=== PATIENT | male | born 1965 | race Caucasian/White ===

== ENCOUNTER 2017-02-01 11:58 | Outpatient (CLI) | payer BC ==
[2017-02-01 12:25] LABS: Bilirubin Negative (Negative); Blood, Urine Negative (Negative); Clarity Clear (Clear); Glucose, Urine (Dipstick) Negative (Negative); Nitrite Negative (Negative); Protein, Urine (Dipstick) Negative (Neg-Trace); pH, Urine 7.5 (5.0-9.0)
[2017-02-01 12:26] LABS: #Basophils 0.2 thou/uL (0.0-0.2); #Eosinphils 0.3 thou/uL (0.0-0.7); #Lymphocytes 2.2 thou/uL (1.20-3.40); #Monocytes 0.9 thou/uL (0.11-0.59); %Eosinophils 4.1 % (0.0-10.0); %Lymphocytes 29.1 % (21.0-51.0); %Monocytes 11.7 % (0.0-10.0); %Neutrophils 53.1 % (42.0-75.0); Hemoglobin 15.3 g/dL (14.0-18.0); Mean Corpuscular HGB CONC 33.2 g/dL (32.0-36.0); Mean Corpuscular Hemoglobin 30.5 pg (27.0-31.0); Mean Corpuscular Volume 91.9 fl (80.0-94.0); Mean Platelet Volume 7.3 fL (7.4-10.4); Platelet Count 268 thou/uL (130-400); RBC Distribution Width 11.6 % (11.5-14.5); Red Blood Cell (RBC) Count 5.03 mill/uL (4.70-6.10); White Blood Cell (WBC) Count 7.6 thou/uL (4.8-10.8)
[2017-02-01 12:30] LABS: Leukocyte Trace (Negative)
[2017-02-01 12:47] LABS: Bacteria/HPF Rare-Few HPF (None Seen); Other Microscopic Description NO; RBC/HPF None Seen HPF (0-3); Squamous Epithelial 0-3 HPF (0-3); WBC/HPF 0-3 HPF (0-3)
[2017-02-01 13:01] LABS: Anion Gap 12 mmol/L (10-20); BUN (Urea Nitrogen) 13 mg/dL (8.4-25.7); Calc. Creatinine Clearance 0 mL/min (70-130); Carbon Dioxide 23 mmol/L (22-29); Chloride 107 mmol/L (98-107); Estimated GFR-MDRD Greater than 90; Glucose 98 mg/dL (70-105); Potassium 4.4 mmol/L (3.5-5.1); Sodium 138 mmol/L (136-145)
[2017-02-01 13:02] LABS: ALT (SGPT) 13 U/L (8-55); AST (SGOT) 19 U/L (5-34); Albumin 4.1 g/dL (3.5-5.0); Alkaline Phosphatase 82 U/L (40-150); Globulin 2.9 g/dL (2.4-3.5)
== END 2017-02-01 11:59 | disposition home or self-care (01) ==
LOC: NAVSJIPCSP 11:58
PROVIDERS: ATTEND Internal Medicine
DX: Z12.5 Encounter for screening for malignant neoplasm of prostate (principal); R10.13 Epigastric pain
CPT/HCPCS: 36415; 80053; 81003; 81015; 85025; G0103

== ENCOUNTER 2017-03-08 08:42 | Outpatient (CLI) | payer BC ==
--- NOTE | 2017-03-08 12:07 | CT ---
CT ABDOMEN WITH IV CONTRAST CT PELVIS WITH IV CONTRAST 03/08/2017 HISTORY: Periumbilical abdominal pain. History of hernia surgery two years ago. COMPARISON: None available. CONTRAST: [id number] 94 mL. FINDINGS: There is minimal linear scarring versus atelectasis at the right lung base. The lung bases are othe rwise clear. There is a coarse calcification seen within the medial segment of the left hepatic lobe, which may b e attributable to prior granulomatous disease. The liver is otherwise normal in appearance. There are two nonobstructing inferior pole left renal calculi, with the largest calculus measuring a pproximately 7 mm. The spleen, pancreas, bilateral adrenal glands, right kidney, urinary bladder, and opacified bowel d emonstrate a normal CT appearance. The appendix is visualized and filled with gas and is normal in caliber. Minimal vascular calcifications are seen in the abdominal aorta, which is normal in caliber. No free fluid, fluid collection, or lymphadenopathy is seen in the abdomen or pelvis. A small to mo derate amount of retained fecal material is seen throughout the colon, greater in the region of the rectum. There are degenerative changes seen in the spine, with bilateral hip osteoarthritis present. IMPRESSION: 1. Nonobstructing left renal calculi. 2. No CT evidence of appendicitis. 3. Mild enlargement of the prostate gland, measuring 5.5 cm in transverse dimensions. 4. No acute findings are seen in the abdomen or pelvis. POS: [facility]
== END 2017-03-08 08:43 | disposition home or self-care (01) ==
LOC: NAV CT 08:42
PROVIDERS: ATTEND Surgery
DX: R10.33 Periumbilical pain (principal); N20.0 Calculus of kidney; N40.0 Benign prostatic hyperplasia without lower urinary tract symptoms
CPT/HCPCS: 74177

== ENCOUNTER 2021-11-09 09:08 | Outpatient (CLI) | payer BC ==
[2021-11-09 09:38] LABS: Calc. Creatinine Clearance 0 mL/min (70-130)
== END 2021-11-09 09:09 | disposition home or self-care (01) ==
LOC: NAV LAB 09:08
PROVIDERS: ATTEND Radiology Diagnostic Radiology
DX: Z01.812 Encounter for preprocedural laboratory examination (principal)
CPT/HCPCS: 36415; 82565

== ENCOUNTER 2021-11-09 09:17 | Outpatient (CLI) | payer BC ==
[~2021-11-09 09:17] MED LIST: Iopamidol 370 76% 100 ML VIAL ONE
== END 2021-11-09 09:18 | disposition home or self-care (01) ==
LOC: NAV CT 09:17
PROVIDERS: ATTEND Surgery
DX: R10.9 Unspecified abdominal pain (principal); N20.0 Calculus of kidney
CPT/HCPCS: 74177; Q9967

== ENCOUNTER 2021-11-17 10:14 | Emergency (ER) | payer BC ==
[2021-11-17 11:09] LABS: Hemoglobin 12.7 g/dL (14.0-18.0); Red Blood Cell (RBC) Count 4.09 mill/uL (4.70-6.10); White Blood Cell (WBC) Count 6.6 thou/uL (4.8-10.8)
[2021-11-17 11:10] LABS: #Basophils 0.1 thou/uL (0.0-0.2); #Eosinphils 0.2 thou/uL (0.0-0.7); #Lymphocytes 1.4 thou/uL (1.20-3.40); #Monocytes 0.9 thou/uL (0.11-0.59); #Neutrophils 4.1 thou/uL (1.40-6.50); %Basophils 1.1 % (0.0-1.0); %Eosinophils 2.7 % (0.0-10.0); %Lymphocytes 20.8 % (21.0-51.0); %Monocytes 13.6 % (0.0-10.0); %Neutrophils 61.9 % (42.0-75.0); Manual Diff?? NO; Mean Corpuscular HGB CONC 31.3 g/dL (32.0-36.0); Mean Corpuscular Hemoglobin 31.1 pg (27.0-31.0); Mean Corpuscular Volume 99.4 fL (78.0-98.0); Mean Platelet Volume 7.5 fL (7.4-10.4); Platelet Count 266 thou/uL (130-400); RBC Distribution Width 11.8 % (11.5-14.5)
[2021-11-17 11:24] LABS: ALT (SGPT) 20 U/L (8-55); AST (SGOT) 25 U/L (5-34); Albumin 3.7 g/dL (3.5-5.0); Alkaline Phosphatase 56 U/L (40-110); Anion Gap 14 mmol/L (10-20); BUN (Urea Nitrogen) 14 mg/dL (8.4-25.7); Bilirubin, Total 0.9 mg/dL (0.2-1.2); Calc. Creatinine Clearance 0 mL/min (70-130); Calcium 8.7 mg/dL (7.8-10.44); Carbon Dioxide 25 mmol/L (22-29); Chloride 107 mmol/L (98-107); Globulin 2.3 g/dL (2.4-3.5); Glucose 98 mg/dL (70-105); Lipase 35 U/L (8-78); Potassium 4.5 mmol/L (3.5-5.1); Sodium 141 mmol/L (136-145)
[2021-11-17 12:23] LABS: Bilirubin Small (Negative); Blood, Urine Negative (Negative); Clarity Clear (Clear); Glucose, Urine (Dipstick) Negative (Negative); Ketone, Urine Trace mg/dL (Negative); Leukocyte Negative (Negative); Nitrite Negative (Negative); Protein, Urine (Dipstick) Negative (Neg-Trace)
[2021-11-17 12:25] LABS: Specific Gravity, Urine 1.034 (1.002-1.036)
== END 2021-11-17 12:48 | disposition home or self-care (01) ==
LOC: NAV ERS 10:14
DX: R10.9 Unspecified abdominal pain (principal); G89.29 Other chronic pain; M19.90 Unspecified osteoarthritis, unspecified site; F17.210 Nicotine dependence, cigarettes, uncomplicated; Z79.899 Other long term (current) drug therapy; Z87.19 Personal history of other diseases of the digestive system
CPT/HCPCS: 36415; 80053; 81003; 83605; 83690; 85025; 99284